=== PATIENT | female | born 1975 | race Caucasian/White ===

== ENCOUNTER 2024-08-18 08:13 | Emergency (ER) | payer OTHER, SELFPAY ==
[2024-08-18 08:14] VITALS: BP 128/81
--- NOTE | 2024-08-18 08:29 | ED.GENMED ---
History of Present Illness
General
Chief Complaint: Allergic Reaction
Source: patient
Exam Limitations: none
Time Seen by Provider: 08/18/24 08:20
History of Present Illness
History of Present Illness:
48yoF with a history of anxiety presenting for evaluation of a rash. Symptoms began around 4:45pm last night when she developed a red itchy rash. She also felt nauseous and jittery when her rash started. She took a dose of Benadryl and went to
bed. She woke up this morning again with the rash which was more generalized. 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 Patient continues to
feel very jittery and she states her heart rate was up to 130 this morning. She denies any chest pain, shortness of breath, vomiting, diarrhea. She is unsure what is causing her rash and denies using any new products.
Phy Exam
General Physical Exam
General Presentation: well appearing and no apparent distress
General age: appears stated age
General Skin: warm and dry
General Habitus: normal
General Mental: alert
ENT Exam
Additional ENT: No oropharyngeal swelling. Normal phonation. Tolerating oral secretions.
Cardiovascular Exam
Cardiovascular Exam: no murmur and tachycardia
Pulmonary Exam
Pulmonary Exam: lungs clear, no respiratory distress, no rales, no crackles and no rhonchi
Neurological Exam
Neurological Exam: alert
[place] Coma Scale
Eye Opening: Spontaneous
Verbal Response: Oriented
Motor Response: Obeys Commands
GCS Total Score: 15
Skin Exam
Skin Exam: warm/dry and other (Generalized scattered erythematous macular/urticarial rash that is blanchable. Erythema noted to bilateral cheeks. )
Psychiatric Exam
Psychiatric Exam: anxious
Course
Orders/Labs/Results
Orders:
Orders
08/18/24 08:28
Electrocardiogram (*1) Urgent
Reason for Study: Palpitations
EKG- Treatment ONCE
0.9% Sodium Chloride 1000 ml [Nss] 1,000 ml IV BOLUS
Dexamethasone Sod Phosphate [Decadron] 10 mg IV NOW STA
Diphenhydramine [Benadryl] 25 mg IV NOW STA
Test Result ONCE
08/18/24 09:44
Basic Metabolic Panel Urgent
Complete Blood Count/With Diff Urgent
HCG, Serum Qualitative Screen Urgent
08/18/24 10:52
LFT [[id number]-Urgw-[id number]] Urgent
Potassium Urgent
Abnormal Lab Results
08/18/24 08/18/24
09:44 10:52
MCHC 32.6 L g/dL
(33.0-37.0)
Alkaline Phosphatase 30 L U/L
(38-126)
Total Protein 5.7 L g/dl
(6.3-8.2)
08/18/24 09:44
08/18/24 10:52
Vital Signs
Initial and Last Documented VS:
Initial Vital Signs
Temp Pulse Resp BP Pulse Ox
98.2 F 105 16 128/81 98
08/18/24 08:14 08/18/24 08:14 08/18/24 08:14 08/18/24 08:14 08/18/24 08:14
Last Documented Vital Signs
Temp Pulse Resp BP Pulse Ox
98.2 F 88 14 105/71 98
08/18/24 08:14 08/18/24 12:00 08/18/24 12:00 08/18/24 12:00 08/18/24 12:00
MDM/Problems Addressed
Differential Diagnosis Includes:
48yoF here with a red itchy rash that began yesterday. No obvious trigger. Also feels jittery and sates her HR was elevated today. Denies CP/SOB. No v/d. HR 105 in triage. Remainder of vitals are normal. She is well appearing in no distress. There
is a generalized scattered erythematous macular rash on exam that blanches. No angioedema noted. Lungs CTA and respirations non-labored. Differential diagnosis includes but is not limited to: allergic reaction, dermatitis, nonspecific rash, no
clinical signs of cellulitis/infection
Initial ED plan: Check CBC, CMP, HCG, and EKG. IV Benadryl, Decadron, and fluid bolus ordered.
*EKG
Interpreted by ED Provider?: Yes
EKG Intrepretation Date: 08/18/24
Heart Rate: 71
Rate: normal
Rhythm: sinus
[place]: normal axis
Interval: normal interval
Ischemia: no ischemia
*Critical Care Note
Total Time (30-74mins, 75-104mins- exclusive of procedures): Not Applicable
Update Note
Update Note:
Labs overall unremarkable. EKG shows normal sinus rhythm without ectopy. Rash improved on reassessment although has not completely resolved. She continues to feel somewhat itchy although declines further Benadryl as she is planning to return to
work after her ED visit. Patient stable for discharge. Advised as needed Benadryl for itching. She was instructed to follow-up with her PCP and dermatology. ED return precautions discussed. She was discharged stable condition.
ED Attending Note
-
Portions of this chart may have been created with voice recognition software.� Occasional wrong word or��sound alike� substitutions may have occurred due to the inherent limitations of voice recognition software.
Discharge Plan
Departure
Patient Disposition: Home (Routine Discharge)
Date of Disposition: 08/18/24
Time of Disposition: 12:19
Patient with high blood pressure during this ER visit?: No
Discharge Problem:
Urticaria
Instructions: Hives (DC)
Referrals:
UNKNOWN - PT DOES,NOT KNOW [Family Provider] -
Jonas Desouza MD [Consulting Staff] -
Stand Alone Forms: Return to Work
Activity Restrictions/Additional Instructions:
Take Benadryl 25mg every 6 hours as needed for itching.
Please follow-up with your family doctor and dermatology. Return to the ER with any worsening symptoms or trouble breathing.
Interventions
Interventions:
*Risk Screen - Suicide Last Done: 08/18/24 08:14
*General Assessment Last Done: 08/18/24 09:34
*Neglect/Abuse Screening Last Done: 08/18/24 08:14
*ED COVID-19 Vaccine History Last Done: 08/18/24 09:34
*Nursing Disposition Last Done: 08/18/24 12:25
ED- Cardiac Assessment Last Done: 08/18/24 09:58
ED- Pulmonary Assessment Last Done: 08/18/24 09:58
ED-Skin Assessment Last Done: 08/18/24 09:58
Discharge Date and Time
Discharge Date/Time: 08/18/24 12:26
Print Language: SOMALI
[2024-08-18 09:33] VITALS: BMI 22.4
[2024-08-18] MEDS: NSS 1000 IV (09:42)
[2024-08-18] MEDS: DECADRON 10 MG IV (09:46)
[2024-08-18] MEDS: BENADRYL 25 MG IV (09:47)
[2024-08-18 09:54] VITALS: BP 108/74
[2024-08-18 09:54] LABS: % Basophils 0.4 % (0-2); % Immature Granulocytes 0.4 % (0-0.5); % Lymphocytes 25.3 % (20.5-51.1); % Monocytes 5.1 % (1.7-9.3); % Neutrophils 67.8 % (42.2-75.2); Absolute Eosinophils 0.1 10^3/uL (0-0.7); Absolute Lymphocytes 1.2 10^3/uL (1.2-3.4); Absolute Monocytes 0.3 10^3/uL (0.1-0.6); Absolute Neutrophils 3.3 10^3/uL (1.4-6.5); Hematocrit 40.5 % (37.0-47.0); Hemoglobin 13.2 g/dL (12.0-16.0); Mean Corp Hgb Conc. 32.6 g/dL (33.0-37.0); Mean Corpuscular Hgb 30.4 pg (27.0-31.0); Mean Corpuscular Volume 93.3 fL (81.0-99.0); Nucleated Red Blood Cells % 0 %; Platelet Count 218 10^3/uL (130-400); Red Blood Cell Count 4.34 10^6/uL (4.20-5.40); Red Cell Dist. Width 12.4 % (11.5-14.5); White Blood Cell Count 4.9 10^3/uL (4.8-10.8)
[2024-08-18 10:00] VITALS: BP 108/73
[2024-08-18 10:09] LABS: HCG, Serum Qualitative Screen Negative
[2024-08-18 10:19] LABS: Blood Urea Nitrogen 10 mg/dl (7-17); Calcium 9.7 mg/dl (8.4-10.2); Carbon Dioxide 24 mmol/L (22-30); Chloride 107 mmol/L (98-107); Estimated Creatinine Clearance 81 ml/min; Glucose 95 mg/dl (70-99); Sodium 138 mmol/L (135-145); eGFR > 60.00
[2024-08-18 11:00] VITALS: BP 103/72
[2024-08-18 11:15] LABS: ALT (SGPT) < 10 U/L (0-35); AST (SGOT) 15 U/L (14-36); Albumin 3.5 g/dl (3.5-5.0); Alkaline Phosphatase 30 U/L (38-126); Direct Bilirubin 0.1 mg/dl (0.0-0.4); Potassium 4.2 mmol/L (3.5-5.1); Total Bilirubin 0.5 mg/dl (0.2-1.3); Total Protein 5.7 g/dl (6.3-8.2)
[2024-08-18 12:00] VITALS: BP 105/71
== END 2024-08-18 12:26 | disposition home or self-care (01) ==
LOC: EMR 08:13
PROVIDERS: Physician Assistant; EMERGENCY PHYSICIAN Emergency Medicine
DX: L50.9 Urticaria, unspecified (principal)
CPT/HCPCS: 99283; 96374; 96375; 96361; 80048; 80076; 84132; 84703; 85025; 93005